=== PATIENT | male | born 2000 | race Caucasian/White ===

== ENCOUNTER 2024-05-17 13:12 | Emergency (ER) | payer OTHER, SELFPAY ==
[2024-05-17 13:18] VITALS: BP 152/88
--- NOTE | 2024-05-17 13:25 | ED.GENMED ---
History of Present Illness
<Steffany Cuenca PA-C - Last Filed: 05/17/24 17:21>
General
Chief Complaint: Skin Surface Trauma
Source: patient
Exam Limitations: none
Time Seen by Provider: 05/17/24 13:24
Nursing documentation reviewed up to this point in time: agreed with
History of Present Illness
History of Present Illness:
24-year-old male with no past medical history presents emergency department today with concerns of a laceration noted to the right first finger. He works with [employer] and states that he cut a piece of metal material and was going with it
into a crawl space to install it when he moved his finger the wrong way and he sliced the top of his finger along the piece of metal. Patient reports that he has gotten cut on this before but has never had a cut from this bleed end this much. His
last tetanus vaccination was 6 years ago. Patient denies any other injuries. Patient reports that he rinsed his wound with water right away and wrapped it with a paper towel.
Review of Systems
<Steffany Cuenca PA-C - Last Filed: 05/17/24 17:21>
Review of Systems
All Other Systems: ROS reviewed and negative except as documented in HPI and ROS
Phy Exam
<Steffany Cuenca PA-C - Last Filed: 05/17/24 17:21>
Physical Exam
Physical Exam:
General: Patient is well appearing and in no acute distress; non-toxic
Skin: Warm and dry, 1.5 cm superficial laceration noted to the right first DIP
Head: Normocephalic, atraumatic
Eyes: Sclera non-icteric. EOMs intact.
Cardiac: Regular rate
Peripheral Vascular: Brisk capillary refill
Pulm: Normal respiratory effort
Musculoskeletal: 5/5 extensor and flexor strength noted against resistance, sensation intact
Neuro: CN II-XII intact, no focal neurologic deficits.
Psychiatric: Appropriate mood and affect.
Course
<Steffany Cuenca PA-C - Last Filed: 05/17/24 17:21>
Orders/Labs/Results
Orders:
Orders
05/17/24 13:38
Tetanus/Diphth/Acelpertussis [Adacel] 0.5 ml IM .ONCE ONE
05/17/24 14:05
Ibuprofen [Motrin] 400 mg PO NOW STA
Vital Signs
Initial and Last Documented VS:
Initial Vital Signs
Temp Pulse Resp BP Pulse Ox
98.2 F 81 17 152/88 98
05/17/24 13:18 05/17/24 13:18 05/17/24 13:18 05/17/24 13:18 05/17/24 13:18
Last Documented Vital Signs
Temp Pulse Resp BP Pulse Ox
98.2 F 81 17 152/88 98
05/17/24 13:18 05/17/24 13:18 05/17/24 13:18 05/17/24 13:18 05/17/24 13:18
<Keith Brody DO - Last Filed: 05/17/24 13:48>
Orders/Labs/Results
Orders:
Orders
05/17/24 13:38
Tetanus/Diphth/Acelpertussis [Adacel] 0.5 ml IM .ONCE ONE
05/17/24 14:05
Ibuprofen [Motrin] 400 mg PO NOW STA
Vital Signs
Initial and Last Documented VS:
Initial Vital Signs
Temp Pulse Resp BP Pulse Ox
98.2 F 81 17 152/88 98
05/17/24 13:18 05/17/24 13:18 05/17/24 13:18 05/17/24 13:18 05/17/24 13:18
Last Documented Vital Signs
Temp Pulse Resp BP Pulse Ox
98.2 F 81 17 152/88 98
05/17/24 13:18 05/17/24 13:18 05/17/24 13:18 05/17/24 13:18 05/17/24 13:18
Procedures
<Steffany Cuenca PA-C - Last Filed: 05/17/24 17:21>
Laceration Closure
Right First Finger:
Status of Wound: clean
Size of Wound in cm: 1.5
Description of Wound Edges: sharp
Preparation: cleaned with saline
Anesthesia: other (no anesthesia was used)
Revision/Debridement: routine- no revision
Wound exploration: explored to base- no FB
Type of Closure: single layer closure
Skin Closure Material: 4-0 prolene
Number of sutures: 2
<YARELY Loo Last Filed: 05/17/24 17:21>
MDM/Problems Addressed
Differential Diagnosis Includes:
laceration, abrasion, neurovascular injury
MDM/Problems Addressed:
24-year-old male presents emergency department today with concerns of a laceration following cutting his finger on [employer] material. Patient states that his last tetanus vaccine was just over 5 years. He we did get his vaccine updated today
considering he had a tetanus prone wound. The laceration is superficial but is over the joint so I opted to repair the laceration with sutures. Considering no crush injury, considering no tenderness, no indication for x-ray imaging at this time.
He has good strength in his sensation is intact. The wound was thoroughly irrigated prior to suturing. We discussed monitoring his symptoms and range of motion and recommended seeing an orthopedist should he find he has decreased ROM or decreased
strength. Patient is stable for discharge.
Chronic conditions affecting care:
n/a
Acute Exacerbation and/or Progression of Chronic Illness:
n/a
<Steffany Cuenca PA-C - Last Filed: 05/17/24 17:21>
*Pulse Oximetry
Patient hypoxic: no
*Critical Care Note
Total Time (30-74mins, 75-104mins- exclusive of procedures): Not Applicable
Data Reviewed
Review of Other/Old Records Reveals: Records (No prior ER physician documentation to review) and Discharge Summary (No discharge summaries in [facility] to review)
Source: patient and records
Prescriptions/Medications Considered But Not Given:
n/a
Further Testing Considered But Not Given:
n/a
<Steffany Cuenca PA-C - Last Filed: 05/17/24 17:21>
Patient Management
Escalation/DeEscalation of care consider admission/obs:
admit not indicated
Case reviewed with my attending
ED Attending Note
<Steffany Cuenca PA-C - Last Filed: 05/17/24 17:21>
-
Portions of this chart may have been created with voice recognition software.� Occasional wrong word or��sound alike� substitutions may have occurred due to the inherent limitations of voice recognition software.
<Keith Brody DO - Last Filed: 05/17/24 13:48>
ED Attending Note
Patient seen and examined by attending physician: Yes
I performed the substantive portion of visit, reviewed & personally made and approve the management plan that is documented in note by myself or REILLY.: Yes
ED Attending Note:
I evaluated the patient at bedside. The patient does have laceration which is relatively superficial over the dorsal last of the DIP. No tendon involvement noted on exam, excellent extensor function noted.
Discharge Plan
Departure
Patient Disposition: Home (Routine Discharge)
Date of Disposition: 05/17/24
Time of Disposition: 14:07
Patient with high blood pressure during this ER visit?: Yes
Condition: Good
Discharge Problem:
Finger laceration
Instructions: Laceration Repair With Stitches (DC), BLOOD PRESSURE
Activity Restrictions/Additional Instructions:
2 stitches were placed over your first DIP joint. Please return to the emergency department, urgent care, or your your primary care provider to have the stitches removed in 7 to 10 days. Please keep the wound dry for 24 hours. After 24 hours, you
can let warm soapy water run over the wound, please not scrub the wound.
Signs of infection to look out for that would indicate prompt return to the emergency department would be purulent drainage from the wound, redness or swelling surrounding the wound, increasing pain.
You can alternate Tylenol and Motrin for pain control.
Interventions
Interventions:
*Risk Screen - Suicide Last Done: 05/17/24 13:19
*General Assessment Last Done: 05/17/24 13:19
*Neglect/Abuse Screening Last Done: 05/17/24 13:19
*ED COVID-19 Vaccine History Last Done: 05/17/24 13:19
*Nursing Disposition Last Done: 05/17/24 14:36
ED-Skin Assessment Last Done: 05/17/24 13:31
Discharge Date and Time
Discharge Date/Time: 05/17/24 14:36
Print Language: CONGOLESE
[2024-05-17] MEDS: ADACEL 0.5 ML IM (13:46)
[2024-05-17] MEDS: MOTRIN 400 MG PO (14:10)
== END 2024-05-17 14:36 | disposition home or self-care (01) ==
LOC: EMR 13:12
PROVIDERS: EMERGENCY PHYSICIAN Emergency Medicine
DX: S61.210A Laceration without foreign body of right index finger without damage to nail, initial encounter (principal); W26.8XXA Contact with other sharp object(s), not elsewhere classified, initial encounter; Y99.0 Civilian activity done for income or pay; Z23 Encounter for immunization
CPT/HCPCS: 99283; 12001; 90471; 90715